=== PATIENT | female | born 1980 | race Caucasian/White ===

== ENCOUNTER 2022-07-18 03:47 | Inpatient (IN) | payer SELFPAY, OTHER ==
[2022-07-18] VITALS (46 sets, daily range): BP systolic 118–159; BP diastolic 58–93; PULSE 90–121; RESP 17; TEMP 36.2–37.2; O2SAT 81–99; BMI 45.3
[2022-07-18] MEDS: Lactated Ringers 1,000 ML 999 ML IV (03:25)
[2022-07-18 03:42] LABS: Absolute Lymphocyte Count 1.04 X10^3/uL (0.83-4.51); Absolute Neutrophil Count 7.5 X10^3/uL (2.0-7.7); Basophil# 0.03 X10^3/uL; Basophil% 0.3 % (0-1); Eosinophil# 0.06 X10^3/uL; Eosinophils% 0.6 % (0-5); Hematocrit 37.6 % (37-47); Hemoglobin 12.6 g/dL (12.0-15.0); Lymphocyte # 1.04 X10^3/ul (0.83-4.51); Lymphocyte % 11.1 % (19-41); Mean Corp Hgb Conc 33.5 g/dL (32-36); Mean Corpuscular Hgb 26.9 pg (27.0-32.0); Mean Corpuscular Volume 80.2 fL (81-99); Mean Platelet Vol. 8.7 fl (6.2-12.0); Monocyte# 0.69 X10^3/uL; Monocyte% 7.4 % (0-10); NRBC Flagged by Analyzer 0 % (0-5); Platelet Count 225 K/mm3 (150-450); RBC Distribution Width CV 15.8 % (11.6-14.6); Red Blood Count 4.69 M/mm3 (4.2-5.4); White Blood Count 9.4 K/mm3 (4.4-11.0)
[2022-07-18 04:06] LABS: ALB/GLOB Ratio 0.6 RATIO (0.9-2.4); AST(SGOT) 18 U/L (15-37); Alanine Aminotransfer ALT/SGPT 15 U/L (13-56); Albumin, Serum 2.6 g/dL (3.2-5.0); Alkaline Phosphatase 115 U/L (45-117); Anion Gap 8 (5-15); BUN 8 mg/dL (7-18); BUN/Creat Ratio 13.5 RATIO (10-20); Calcium,Total 9.1 mg/dL (8.5-10.1); Chloride 108 mmol/L (98-107); Creatinine, Serum 0.59 mg/dL (0.55-1.02); EST Glomerular Filtration Rate 119 mL/min (>60); Est Glom Filt Rate - Afr Amer 144 mL/min (>60); Estimated Creatinine Clearance 115.19 ml/min; Globulin 4.2 g/dL (2.2-4.2); Glucose 95 mg/dL (74-106); Potassium 3.6 mmol/L (3.5-5.1); Protein, Total 6.8 g/dL (6.4-8.2); Sodium Level 138 mmol/L (136-145)
[2022-07-18 04:15] LABS: International Normalized Ratio 1.1; Prothrombin Time (Protime)PT. 14.2 SECONDS (11.7-14.9)
[2022-07-18 04:16] LABS: Fibrinogen 694 mg/dl (203-444); Partial Thromboplast Time 32.5 Seconds (24.1-36.2)
[2022-07-18 04:25] LABS: ROM Internal Control Test YES-OK TO RESULT pt. (Internal QC); ROM Patient Test Negative (Negative); Record Kit Lot#, ROM+ K1374
[2022-07-18] MEDS: Lactated Ringers 1,000 ML 50 ML IV ×2 (04:29→08:52)
[2022-07-18 04:46] LABS: Rubella IgG Reactive (Nonreactive); Syphilis Antibodies Non-reactive
[2022-07-18 05:18] LABS: HIV - WCH Non-Reactive (Nonreactive); Hepatitis B Surface Antigen Non-Reactive (Nonreactive); Hepatitis C Antibody Non-Reactive (Nonreactive)
[2022-07-18 06:36] LABS: Mucous, Urine 0 SEEN /hpf (<or=2+)
[2022-07-18 06:43] LABS: Group B Strep DNA By PCR Negative (Negative); Internal Control PASS; Probe Check PASS; Specimen Processing Control PASS
[2022-07-18 06:52] LABS: Color, Urine Yellow (Yellow); Glucose, Dipstick Normal (Normal); Ketone-Dipstick 15 mg/dl (Negative); Leukocyte Esterase-Dipstick 500 /ul (Negative); Nitrite-Dipstick Positive (Negative); Occult Blood-Urine 150 /ul (Negative); Protein-Dipstick 15 mg/dl (Negative); Urine Bilirubin Dipstick Negative (Negative); Urine Clarity Clear (Clear); Urine Urobilinogen Normal (Normal)
[2022-07-18 07:01] LABS: Bacteria 3+ /hpf (None Seen); Red Blood Cells-Urine 0-5 SEEN /hpf (0-5); Squamous Epithelial Cells - UA 0-5 SEEN /hpf (5-10); White Blood Cells 25-50 SEEN /hpf (0-5)
[2022-07-18 07:04] LABS: Amphetamine Urine VISTA NEGATIVE (<1000 ng/mL); Barbiturate Urine VISTA NEGATIVE (< 200 ng/mL); Benzodiazepine Urine VISTA NEGATIVE (< 200 ng/mL); Cocaine Urine VISTA NEGATIVE (< 300 ng/mL); Ecstacy Urine VISTA NEGATIVE (< 500 ng/mL); Methadone Urine VISTA NEGATIVE (< 300 ng/mL); PCP Urine VISTA NEGATIVE (< 25 ng/mL); THC Urine VISTA NEGATIVE (< 50 ng/mL); Vista UDS pH Range 7
--- NOTE | 2022-07-18 07:18 | PCM.HP.OB ---
HPI - General General Date of Admission: 07/18/22 HPI Narrative JAVIER RUBIO, is a 41 F who presents with SROM and chtn, transfer of care from [facility], also had bloody emesis. [facility] Medical History (Updated 07/18/22 @ 07:[address] Umm Mistry MD) Chronic hypertension Home Medications labetalol 200 mg tablet 200 mg PO BID 07/18/22 [History Last Taken Unknown] [id number] 1 mg tablet 1 tab PO DAILY 07/18/22 [History Last Taken Unknown] Allergy/AdvReac Type Severity Reaction Status Date / Time No Known Allergies Allergy Verified 07/18/22 02:54 Social History Smoking Status: Never smoker History Elective abortions Hx Para 6 Spontaneous abortions Hx # Term Pregnancies Ectopic pregnancies Hx # Pregnancies Multiple births # of living children NST FHR Rate Baby A Baseline: 130 Variability:: Moderate Accelerations:: 15 x 15 Decelerations:: None NST Reactive:: Yes FHR Category:: Category I Uterine Activity:: irregular ROS Constitutional Constitutional: Reports systems reviewed and no addt'l complaints, except as documented Eyes Eyes: Denies change in vision ENT HEENT: Reports systems reviewed and no addt'l complaints, except as documented; Denies headache(s) Cardiovascular Cardiovascular: Reports systems reviewed and no addt'l complaints, except as documented; Denies chest pain or dyspnea Respiratory/Chest Respiratory/Chest: Reports systems reviewed and no addt'l complaints, except as documented Gastrointestinal Gastrointestinal: Reports systems reviewed and no addt'l complaints, except as documented; Denies abdominal pain Genitourinary Genitourinary: Reports systems reviewed and no addt'l complaints, except as documented, contractions Details: present (irregular) and movement Details: present; Denies dysuria or genital lesions Musculoskeletal Musculoskeletal: Reports systems reviewed and no addt'l complaints, except as documented Neurologic Neurologic: Reports systems reviewed and no addt'l complaints, except as documented Endocrine Endocrinology: Reports systems reviewed and no addt'l complaints, except as documented Vital Signs Vital Signs Vital Signs: 07/18/22 02:35 07/18/22 02:35 07/18/22 02:40 Temperature Temperature Source Pulse Rate 115 H 115 H Blood Pressure BP Systolic BP Diastolic Pulse Ox 97 07/18/22 02:40 07/18/22 02:43 07/18/22 02:43 Temperature Temperature Source Pulse Rate 104 H Blood Pressure 157/93 H BP Systolic 157 BP Diastolic 93 Pulse Ox 96 07/18/22 02:45 07/18/22 02:45 07/18/22 02:50 Temperature Temperature Source Pulse Rate 107 H 113 H Blood Pressure BP Systolic BP Diastolic Pulse Ox 97 07/18/22 02:50 07/18/22 02:55 07/18/22 02:55 Temperature Temperature Source Pulse Rate 102 H Blood Pressure BP Systolic BP Diastolic Pulse Ox 98 97 07/18/22 02:59 07/18/22 02:59 07/18/22 03:00 Temperature Temperature Source Pulse Rate 105 H 106 H Blood Pressure 136/76 H BP Systolic 136 BP Diastolic 76 Pulse Ox 07/18/22 03:00 07/18/22 03:05 07/18/22 03:05 Temperature Temperature Source Pulse Rate 111 H Blood Pressure BP Systolic BP Diastolic Pulse Ox 97 97 07/18/22 03:10 07/18/22 03:10 07/18/22 03:12 Temperature Temperature Source Pulse Rate 102 H 117 H Blood Pressure BP Systolic BP Diastolic Pulse Ox 97 07/18/22 03:12 07/18/22 03:14 07/18/22 03:14 Temperature Temperature Source Pulse Rate 109 H Blood Pressure 138/72 H BP Systolic 138 BP Diastolic 72 Pulse Ox 93 07/18/22 03:15 07/18/22 03:15 07/18/22 03:18 Temperature Temperature Source Pulse Rate 114 H 108 H Blood Pressure BP Systolic BP Diastolic Pulse Ox 97 07/18/22 03:18 07/18/22 03:20 07/18/22 03:20 Temperature Temperature Source Pulse Rate 112 H Blood Pressure BP Systolic BP Diastolic Pulse Ox 94 95 07/18/22 03:25 07/18/22 03:25 07/18/22 03:30 Temperature Temperature Source Pulse Rate 114 H 118 H Blood Pressure BP Systolic BP Diastolic Pulse Ox 97 07/18/22 03:30 07/18/22 03:35 07/18/22 03:35 Temperature Temperature Source Pulse Rate 121 H Blood Pressure BP Systolic BP Diastolic Pulse Ox 99 98 07/18/22 03:40 07/18/22 03:40 07/18/22 03:45 Temperature Temperature Source Pulse Rate 112 H 114 H Blood Pressure BP Systolic BP Diastolic Pulse Ox 98 07/18/22 03:45 07/18/22 03:50 07/18/22 03:50 Temperature Temperature Source Pulse Rate 107 H Blood Pressure BP Systolic BP Diastolic Pulse Ox 97 98 07/18/22 03:55 07/18/22 03:55 07/18/22 04:00 Temperature Temperature Source Pulse Rate 110 H 111 H Blood Pressure BP Systolic BP Diastolic Pulse Ox 98 07/18/22 04:00 07/18/22 04:05 07/18/22 04:05 Temperature Temperature Source Pulse Rate 109 H Blood Pressure BP Systolic BP Diastolic Pulse Ox 98 97 07/18/22 04:10 07/18/22 04:10 07/18/22 04:15 Temperature Temperature Source Pulse Rate 117 H 114 H Blood Pressure BP Systolic BP Diastolic Pulse Ox 97 07/18/22 04:15 07/18/22 04:20 07/18/22 04:20 Temperature Temperature Source Pulse Rate 113 H Blood Pressure BP Systolic BP Diastolic Pulse Ox 97 97 07/18/22 04:25 07/18/22 04:25 07/18/22 04:30 Temperature Temperature Source Pulse Rate 107 H 116 H Blood Pressure BP Systolic BP Diastolic Pulse Ox 97 07/18/22 04:30 07/18/22 04:35 07/18/22 04:35 Temperature Temperature Source Pulse Rate 109 H Blood Pressure BP Systolic BP Diastolic Pulse Ox 97 98 07/18/22 05:59 07/18/22 05:59 07/18/22 05:59 Temperature Temperature Source Temporal Pulse Rate 104 H Blood Pressure 142/91 H BP Systolic 142 BP Diastolic 91 Pulse Ox 07/18/22 05:59 07/18/22 05:59 07/18/22 05:59 Temperature 98.9 F Temperature Source Pulse Rate 103 H Blood Pressure BP Systolic BP Diastolic Pulse Ox 96 07/18/22 07:14 07/18/22 07:14 07/18/22 07:14 Temperature Temperature Source Pulse Rate 104 H Blood Pressure 159/84 H BP Systolic 159 BP Diastolic 84 Pulse Ox 98 Weight Weight: 272 lb 2 oz Body Mass Index (BMI) 45.3 Physical Exam Const alert, oriented x3, no apparent distress and healthy appearing HEENT normocephalic and moist oral mucous membranes Head and Scalp: atraumatic Neck full ROM, no lymphadenopathy, supple and thyroid normal General: trachea midline Lymph Lymphatic: no lymphadenopathy noted Chest inspection of chest normal Resp normal respiratory effort Cardio regular rate GI normal to inspection, nondistended, normoactive bowel sounds, soft to palpation and non-tender Inspection: gravid external exam normal Manual OB Exam: estimated gestational size appropriate, presentation cephalic, dilated, effaced and station Extremity normal to inspection General Extremity: Negative for edema Skin no rashes or lesions noted Neuro no focal motor deficits and deep tendon reflexes 2+ bilaterally Motor Exam: strength 5/5 throughout and clonus absent Psych mental status grossly normal Labs Labs Labs: Blood Type A POSITIVE Antibody Screen NEGATIVE Hct 37.6 % (37-47) Hgb 12.6 g/dL (12.0-15.0) Syphilis Total Ab Non-reactive Rubella IgG Antibody Reactive (Nonreactive) Hep Bs Antigen Non-Reactive (Nonreactive) HIV 1&2 Antibody Non-Reactive (Nonreactive) Group B Strep DNA Negative (Negative) Assessment & Plan (1) SROM (spontaneous rupture of membranes): (2) Active labor at term:
[2022-07-18] MEDS: Labetalol 200 MG Tablet PO (08:26)
[2022-07-18] MEDS: Oxytocin 15 Units/NS 250ml 15 UNITS/250 ML IV.SOLN 2 UNITS IV (08:27)
[2022-07-18 08:43] LABS: Chlamydia Trachomatis by PCR Negative (Negative); Neisserai gonorrhoeae by PCR Negative (Negative); Probe Check PASS; Sample Adequacy Control PASS; Specimen Processing Control PASS
[2022-07-18] MEDS: Oxytocin 15 Units/NS 250ml 15 UNITS/250 ML IV.SOLN 83 UNITS IV (13:15)
[2022-07-18 18:50] LABS: Absolute Lymphocyte Count 0.59 X10^3/uL (0.83-4.51); Absolute Neutrophil Count 12.7 X10^3/uL (2.0-7.7); Basophil# 0.04 X10^3/uL; Basophil% 0.3 % (0-1); Eosinophil# 0.01 X10^3/uL; Eosinophils% 0.1 % (0-5); Hematocrit 36.8 % (37-47); Hemoglobin 11.9 g/dL (12.0-15.0); Lymphocyte # 0.59 X10^3/ul (0.83-4.51); Lymphocyte % 4.2 % (19-41); Mean Corp Hgb Conc 32.3 g/dL (32-36); Mean Corpuscular Hgb 26.6 pg (27.0-32.0); Mean Corpuscular Volume 82.3 fL (81-99); Mean Platelet Vol. 8.9 fl (6.2-12.0); Monocyte# 0.76 X10^3/uL; Monocyte% 5.4 % (0-10); NRBC Flagged by Analyzer 0 % (0-5); Neutrophil # 12.71 X10^3/uL (2.7-7.7); Neutrophil % 89.4 % (47-70); POSITIVE DIFFERENTIAL YES; Platelet Count 221 K/mm3 (150-450); RBC Distribution Width CV 15.9 % (11.6-14.6); RBC Distribution Width SD 47.5 fl (35.1-43.9); Red Blood Count 4.47 M/mm3 (4.2-5.4); White Blood Count 14.2 K/mm3 (4.4-11.0)
[2022-07-18 18:52] LABS: Differential Indicated SCAN CRITERIA MET
[2022-07-18 19:28] LABS: Anisocytosis RARE; Platelet Estimate ADEQUATE (ADEQ); Red Cell Morphology N CHROM NORMAL (NORM C&C)
[2022-07-18 19:29] LABS: Microcytosis RARE
[2022-07-18] MEDS: Acetaminophen 500 MG Tablet 1000 MG PO (19:58)
--- NOTE | 2022-07-18 21:28 | NURSING ---
call to provider to update on CBC results. pt's hgb went from 12.6 to 11.9, provider gave order to continue with plan of care no further interventions are needed at this time. this RN reported to provider that pt's BP at 1999 vital checks was 118/65, provider gave order to retake blood pressure when scheduled labetalol is due at 2200 and if pressure is below 120 systolic hold scheduled dose. if pt's pressure rises above 140 systolic when obtaining scheduled vital signs give held dose of labetalol.
[2022-07-19 00:18] VITALS: BP 129/75; PULSE 65; RESP 15; TEMP 36.3; O2SAT 100
[2022-07-19 03:04] VITALS: BP 141/58; PULSE 78; RESP 17; TEMP 36.9; O2SAT 97
[2022-07-19] MEDS: Labetalol 200 MG Tablet PO (04:33)
--- NOTE | 2022-07-19 05:48 | EX.PCM.OBRPT ---
Assessment & Plan (1) Active labor at term: (2) SROM (spontaneous rupture of membranes): (3) Vaginal delivery: COMMENT: SM IAL SROM chtn Vaginal Delivery Operative Information Date of Procedure: 07/18/22 Pre-Operative Diagnosis: see a/p diagnoses Post-Operative Diagnosis: same Surgery / Procedure Performed: Spontaneous Vaginal Delivery Type of Anesthesia: None Special Medications: none Estimated Blood Loss: 200 Fluids Replaced: crystalloid Findings Description of Procedure: Patient began pushing and delivered the head in the MISAEL presentation. The head was delivered atraumatically . The anterior and posterior shoulders delivered without complication followed by the rest of the and the was placed on the maternal abdomen. Delayed cord clamping was employed for approximately 60 seconds. Cord was clamped and cut and gentle traction was applied to the cord and the placenta delivered spontaneously immediately following it was noted to be intact with three-vessel cord. The perineum and vagina were inspected and noted to have no laceration. EBL was 200 cc. Patient and tolerated delivery well. Amniotic Fluid Description: Clear Placental Delivery Description: Spontaneous Placenta Disposition: [facility] Cord Vessel Description: 3 Vessels Cord Entanglement: None Delayed Cord Clamping: Yes Post Vaginal Delivery Medications Given After Delivery: - (Pitocin) Episiotomy Description: None Complication Complications: None Procedures Urinary/Genital [id number]: [id number] Vaginal Delivery+PP Care([facility])
--- NOTE | 2022-07-19 05:50 | DCINST_ITS ---
Discharge Instructions Diet Discharge Diet: No restrictions Activity Discharge Activity: Return to Normal Activity, May Drive, May Shower and May Take a Tub Bath (in 4 weeks) May resume sexual activity in: 6-8 weeks (after seen by OB provider) Weight Bearing Status: Full weight bearing Lifting Restrictions: none Dressing / Incision Call your doctor if you observe: Fever of 101 or Higher, Inability to urinate, Using more than 1 pad per hour (for more than 2 hours in a row or more), Shortness of breath, Dizziness, Chest pain and - (headache not controlled with tylenol, change in vision) Follow Up Care When: in 6 weeks for visit, call the office to make the appointment. If you had elevated blood pressures call the office to be seen within 1 week. Test Results: Test results from this visit will be discussed in further detail at your follow- up appointment, if applicable. Discharge Plan Admission Admit Date/Time: 07/18/22 03:47 Attending Provider: Umm Mistry Primary Care Provider: Domingo Avendano Consulting Providers: Vale Agee Discharge Orders/Prescriptions Prescriptions: No Action labetalol 200 mg Tablet 200 mg PO BID 1 mg Tablet 1 tab PO DAILY Referrals / Follow Up: Domingo Avendano PA-C [Primary Care Provider] - Disposition Disposition (needs filled in before D/C Order can be placed): Home, Self Care
--- NOTE | 2022-07-19 05:51 | PN.OBGYN_ITS ---
Subjective Subjective Patient doing well without complaints. Tolerating PO. Ambulating and voiding without difficulty. feeding well. Denies chest pain, shortness of breath, calf pain/swelling, fevers, chills, lightheadedness. Objective Data Objective Data Vital Signs: Vital Signs Temp Pulse Resp BP Pulse Ox O2 Del Method 98.4 F 78 17 141/58 H 97 Room Air 07/19/22 03:04 07/19/22 03:04 07/19/22 03:04 07/19/22 03:04 07/19/22 03:04 07/19/22 03:04 Oxygen Delivery Method Room Air Weight: 272 lb 2 oz Body Mass Index (BMI) 45.3 Intake & Output: Intake and Output for Last 24 Hours 07/17/22 07/18/22 07/19/22 23:59 23:59 23:59 Intake Total 1895.04 / 1895.04 Output Total 700 / 700 Balance 1195.04 / 1195.04 Lab / Micro Data Result Diagrams: 07/18/22 18:35 07/18/22 03:25 Labs: Laboratory Results - last 24 hr 07/18/22 03:30: Urine Color Yellow, Urine Clarity Clear, Urine pH 7.0, Ur Specific [place] 1.010, Urine Protein 15 H, Urine Glucose (UA) Normal, Urine Ketones 15 H, Urine Occult Blood 150 H, Urine Nitrite Positive H, Urine Dennis irubin Negative, Urine Urobilinogen Normal, Ur Leukocyte Esterase 500 H, Urine RBC 0-5 SEEN, Urine WBC 25-50 SEEN, Ur Squamous Epith Cells 0-5 SEEN, Urine Bacteria 3+, Urine Mucus 0 SEEN 07/18/22 03:30: Urine Opiates Screen NEGATIVE, Urine Methadone Screen NEGATIVE, Ur Barbiturates Screen NEGATIVE, Ur Phencyclidine Scrn NEGATIVE, Ur Amphetamines Screen NEGATIVE, MDMA (Ecstasy) Screen NEGATIVE, U Benzodiazepines Scrn NEGATIVE, Urine Cocaine Screen NEGATIVE, U Cannabinoids Screen NEGATIVE, Ur Drug Screen Comment 07/18/22 03:30: Chlam trachomat DNA PCR Negative, N.gonorrhoeae DNA (PCR) Negative, Group B Strep DNA Negative, Specimen Comment Not Reportable 07/18/22 18:35: WBC 14.2 H, RBC 4.47, Hgb 11.9 L, Hct 36.8 L, MCV 82.3, MCH 26.6 L, MCHC 32.3, RDW Std Deviation 47.5 H, RDW Coeff of Peace 15.9 H, Plt Count 221, MPV 8.9, Immature Gran % (Auto) 0.600, Neut % (Auto) 89.4 H, Lymph % (Auto) 4.2 L, Carson % (Auto) 5.4, Eos % (Auto) 0.1, Baso % (Auto) 0.3, Absolute Neuts (auto) 12.7 H, Absolute Lymphs (auto) 0.59 L, Nucleated RBC % 0, Differential Comment SEE COMMENT, Platelet Estimate ADEQUATE, RBC Morphology N CHROM, Anisocytosis RARE, Microcytosis RARE ROS Constitutional Constitutional: Reports systems reviewed and no addt'l complaints, except as documented Cardiovascular Cardiovascular: Reports systems reviewed and no addt'l complaints, except as documented Respiratory/Chest Respiratory/Chest: Reports systems reviewed and no addt'l complaints, except as documented Gastrointestinal Gastrointestinal: Reports systems reviewed and no addt'l complaints, except as documented Physical Exam Const alert, oriented x3 and no apparent distress HEENT Head and Scalp: atraumatic Resp normal respiratory effort GI soft to palpation and non-tender Bimanual Exam - Vag & Uterus: uterus non-tender Uterus Palpation: uterus fundus firm (below Umbilicus) Assessment & Plan (1) Vaginal delivery: COMMENT: PALAK GALINDO IAL SROM chtn PLAN: Plan s/p PPD # 1 1. routine post delivery care 2. breast feeding- support given 3. rh positive 4. rubella immune no further bloody emesis- continue to monitor, will consult medicine if needed
[2022-07-19 07:54] VITALS: BP 125/75; PULSE 103; RESP 18; TEMP 36.4
[2022-07-19 12:00] VITALS: BP 126/75; PULSE 110; RESP 16; TEMP 36.6
[2022-07-19 16:10] VITALS: BP 148/83; PULSE 110; RESP 16; TEMP 36.4
== END 2022-07-19 17:25 | disposition home or self-care (01) | DRG 806 ==
LOC: WPOUT 03:48 → WP 03:48
PROVIDERS: Obstetrics & Gynecology; Admitting Provider Obstetrics & Gynecology; PCP Physician Assistant; Referring Provider Obstetrics & Gynecology; Visit Provider Obstetrics & Gynecology
DX: O10.92 Unspecified pre-existing hypertension complicating childbirth (principal); Z37.0 Single live birth; K92.0 Hematemesis; O99.62 Diseases of the digestive system complicating childbirth; Z3A.39 39 weeks gestation of pregnancy
CPT/HCPCS: 59025; 59050; 76815; 80053; 80307; 81001; 84112; 85025; 85384; 85610; 85730; 86703; 86762; 86780; 86803; 86850; 86900; 86901; 87081; 87340; 87491; 87591; 87653; 99221; J7120; G0378; J0696